=== PATIENT | male | born 1985 ===

== ENCOUNTER 2017-04-07 01:42 | Emergency (ER) | payer SELFPAY ==
[2017-04-07 01:49] VITALS: BP 155/95; PULSE 97; RESP 20; TEMP 98; O2SAT 95
--- NOTE | 2017-04-07 02:01 | C.PDOC ---
History Of Present Illness patient is brought by police under their custody for medical clearance. Patient states he has no complaints Denies any trauma, f/c/ no cp . States he just wants to go to [facility] Time Seen by Provider: 04/07/17 02:00 Chief Complaint (Nursing): Medical Clearance History Per: Patient History/Exam Limitations: no limitations Onset/Duration Of Symptoms: Hrs Current Symptoms Are (Timing): Gone Severity: None Past Medical History Reviewed: Historical Data, Nursing Documentation, Vital Signs Vital Signs: Last Vital Signs Temp 98 F 04/07/17 01:46 Pulse 97 H 04/07/17 01:46 Resp 20 04/07/17 01:46 BP 155/95 H 04/07/17 01:46 Pulse Ox 95 04/07/17 02:01 - Medical History PMH: Asthma Family History: States: No Known Family Hx - Social History Hx Alcohol Use: Yes Hx Substance Use: No - Immunization History Hx Tetanus Toxoid Vaccination: No Hx Influenza Vaccination: No Hx Pneumococcal Vaccination: No Review Of Systems Constitutional: Negative for: Fever, Chills Eyes: Negative for: Redness ENT: Negative for: Throat Pain Cardiovascular: Negative for: Chest Pain Respiratory: Negative for: Shortness of Breath Gastrointestinal: Negative for: Nausea Musculoskeletal: Negative for: Back Pain Skin: Negative for: Rash Neurological: Negative for: Weakness Psych: Negative for: Anxiety Physical Exam - Physical Exam Appears: Non-toxic, No Acute Distress Skin: Warm, Dry Head: Normacephalic Eye(s): bilateral: Normal Inspection Oral Mucosa: Moist Neck: Supple Chest: Symmetrical Cardiovascular: Rhythm Regular Respiratory: No Rales, No Rhonchi, No Wheezing Gastrointestinal/Abdominal: Soft, No Tenderness Male Genital: Normal Inspection Extremity: Bilateral: Atraumatic Neurological/Psych: Oriented x3, Normal Speech, Normal Cognition Gait: Steady ED Course And Treatment O2 Sat by Pulse Oximetry: 95 Pulse Ox Interpretation: Normal Disposition Counseled Patient/Family Regarding: Studies Performed, Diagnosis, Need For Followup - Disposition Disposition: HOME/ ROUTINE Disposition Time: 02:01 Condition: FAIR Additional Instructions: Patient is medically cleared for incarceration Instructions: Normal Exam (ED) Forms: [employer] ([place]) - Clinical Impression Clinical Impression: Encounter for medical assessment
== END 2017-04-07 02:27 ==
LOC: EDBD → C.ER 01:42
DX: Z02.89 Encounter for other administrative examinations (principal)